=== PATIENT | male | born 1945 | race Caucasian/White ===

== ENCOUNTER 2017-11-18 16:33 | Inpatient (IN) | payer SELFPAY ==
[2017-11-18] MEDS ORDERED: Albuterol/Ipratropium 3.0-0.5 MG/3 ML Neb Soln NEB ONE (16:50)
[2017-11-18] MEDS ORDERED: methylPREDNISolone Sodium Succinate 125 MG/2 ML SDV IVPUSH ONE (16:50)
--- NOTE | 2017-11-18 16:51 | EDM.PDOC ---
ED HPI GENERAL MEDICAL PROBLEM - General Chief Complaint: Respiratory Problem Stated Complaint: COUGH/CONGESTION Time Seen by Provider: 11/18/17 16:51 Source of Information: Reports: Patient - History of Present Illness INITIAL COMMENTS - FREE TEXT/NARRATIVE: HISTORY AND PHYSICAL: History of present illness: [Patient presents from [facility] with fever cough shortness of breath and retractions, he had elevated pressure rolled there is noncompliant with his blood pressure medication. Fever measured up to 10 to a [facility] they did provide 1000 mg of Tylenol, 99.4 on arrival here they had considered sending him by ambulance but he refused and presents by private vehicle as such He is been traveling of recent from the [place] area came by [facility] to [place] with symptoms as above ] Review of systems: As per history of present illness and below otherwise all systems reviewed and negative. Past medical history: As per history of present illness and as reviewed below otherwise noncontributory. Surgical history: As per history of present illness and as reviewed below otherwise noncontributory. Social history: No reported history of drug or alcohol abuse. Family history: As per history of present illness and as reviewed below otherwise noncontributory. Physical exam: HEENT: Atraumatic, normocephalic, pupils reactive, negative for conjunctival pallor or scleral icterus, mucous membranes moist, throat clear, neck supple, nontender, trachea midline. Lungs: Clear to auscultation, breath sounds equal bilaterally, chest nontender. Heart: S1S2, regular, negative for clicks, rubs, or JVD. Abdomen: Soft, nondistended, nontender. Negative for masses or hepatosplenomegaly. Negative for costovertebral tenderness. Pelvis: Stable nontender. Genitourinary: Deferred. Rectal: Deferred. Extremities: Atraumatic, negative for cords or calf pain. Neurovascular unremarkable. Neuro: Awake, alert, oriented. Cranial nerves II through XII unremarkable. Cerebellum unremarkable. Motor and sensory unremarkable throughout. Exam nonfocal. Diagnostics: [Lab as below EKG Chest 1 view ] Therapeutics: [DuoNeb provided a [facility] DuoNeb Solu-Medrol 125 mg IV Normal saline 1 25 mL per hour ] Impression: Hypoxia 84% room air Influenza Hypertension resolved Dehydration Rhabdomyolysis [Fever Cough] Definitive disposition and diagnosis as appropriate pending reevaluation and review of above. - Related Data Allergies Allergy/AdvReac Type Severity Reaction Status Date / Time No Known Allergies Allergy Verified 11/18/17 16:48 Home Meds: Home Meds . [No Known Home Meds] 11/18/17 [History] ED ROS GENERAL - Review of Systems Review Of Systems: ROS reveals no pertinent complaints other than HPI. ED EXAM, GENERAL - Physical Exam Exam: See Below Course - Vital Signs Last Recorded V/S: Last Vital Signs Temp 100.3 F 11/18/17 16:48 Pulse 84 11/18/17 17:24 Resp 22 H 11/18/17 17:24 BP 124/77 11/18/17 17:24 Pulse Ox 90 L 11/18/17 17:24 - Orders/Labs/Meds Orders: Active Orders 24 hr Category Date Time Status EKG Documentation Completion [RC] STAT Care 11/18/17 16:50 Active RT Aerosol Therapy [RC] ASDIRECTED Care 11/18/17 16:50 Active Chest 1V Frontal [CR] Stat Exams 11/18/17 16:50 Taken CULTURE BLOOD [BC] Stat Lab 11/18/17 16:59 Received CULTURE BLOOD [BC] Stat Lab 11/18/17 17:11 Received UA W/MICROSCOPIC [URIN] Stat Lab 11/18/17 16:50 Uncollected Sodium Chloride 0.9% [Normal Saline] 1,000 ml Med 11/18/17 17:00 Active IV STAT Blood Culture x2 Reflex Set [OM.PC] Stat Oth 11/18/17 16:51 Ordered Medication Orders Sodium Chloride (Normal Saline) 1,000 mls @ 125 mls/hr IV STAT JOHN Last Admin: 11/18/17 17:07 Dose: 125 mls/hr Labs: Laboratory Tests 11/18/17 11/18/17 Range/Units 16:45 16:45 WBC 12.31 H (4.0-11.0) K/uL RBC 4.97 (4.50-5.90) M/uL Hgb 16.4 (13.0-17.0) g/dL Hct 46.4 (38.0-50.0) % MCV 93.4 (80.0-98.0) fL MCH 33.0 H (27.0-32.0) pg MCHC 35.3 (31.0-37.0) g/dL RDW Std Deviation 44.5 (28.0-62.0) fl RDW Coeff of [place] 13 (11.0-15.0) % Plt Count 222 (150-400) K/uL MPV 9.90 (7.40-12.00) fL Add Manual Diff YES Neutrophils % (Manual) 54 (48.0-80.0) % Band Neutrophils % 22 % Lymphocytes % (Manual) 9 L (16.0-40.0) % Monocytes % (Manual) 10 (0.0-15.0) % Eosinophils % (Manual) 4 (0.0-7.0) % Basophils % (Manual) 1 (0.0-1.5) % Nucleated RBC % 0.0 /100WBC Absolute Seg Neuts 6.6 H (1.4-5.7) Band Neutrophils # 2.7 Lymphocytes # (Manual) 1.1 (0.6-2.4) Monocytes # (Manual) 1.2 H (0.0-0.8) Eosinophils # (Manual) 0.5 (0.0-0.7) Basophils # (Manual) 0.1 (0.0-0.1) Nucleated RBCs # 0 K/uL Sodium 140 (136-146) mmol/L Potassium 4.2 (3.5-5.1) mmol/L Chloride 109 (98-110) mmol/L Carbon Dioxide 18 L (21-31) mmol/L BUN 22 (6.0-23.0) mg/dL Creatinine 1.1 (0.6-1.5) mg/dL Est Cr Clr Drug Dosing 58.42 mL/min Estimated GFR (MDRD) > 60.0 ml/min Glucose 124 H (60-110) mg/dL Calcium 8.9 (8.8-10.8) mg/dL Total Bilirubin 0.4 (0.1-1.5) mg/dL AST 27 (5-40) IU/L ALT 21 (8-54) IU/L Alkaline Phosphatase 95 (40-150) Creatine Kinase 642 H (9-236) IU/L CK-MB (CK-2) 1.1 (0-6.6) ng/ml Troponin I < 0.10 (0.0-0.29) NG/ML Total Protein 8.1 H (6.0-8.0) g/dL Albumin 4.1 (3.4-4.8) g/dL Globulin 4.0 H (2.0-3.5) g/dL Albumin/Globulin Ratio 1.0 L (1.3-2.8) Meds: Medications Generic Name Dose Route Start Last Admin Trade Name Janice PRN Reason Stop Dose Admin Sodium Chloride 1,000 mls @ 125 mls/hr 11/18/17 17:00 11/18/17 17:07 Normal Saline IV 125 mls/hr STAT JOHN Administration Discontinued Medications Generic Name Dose Route Start Last Admin Trade Name Janice PRN Reason Stop Dose Admin Albuterol/Ipratropium 3 ml 11/18/17 16:50 11/18/17 17:07 Duoneb 3.0-0.5 Mg/3 Ml NEB 11/18/17 16:51 3 ml ONETIME ONE Administration Enalaprilat 1.25 mg 11/18/17 16:57 11/18/17 17:07 Vasotec Iv IVPUSH 11/18/17 16:58 1.25 mg ONETIME ONE Administration Methylprednisolone Sodium Succinate 125 mg 11/18/17 16:50 11/18/17 17:07 Solu-Medrol IVPUSH 11/18/17 16:51 125 mg ONETIME ONE Administration Departure - Departure Time of Disposition: 18:05 Disposition: Admitted As Inpatient 68 Condition: Poor Clinical Impression: Hypoxia, Influenza A, Dehydration, Rhabdomyolysis - Discharge Information Referrals: PCP,None [Primary Care Provider] - Forms: ED Department Discharge - My Orders Last 24 Hours: My Active Orders 11/18/17 16:50 EKG Documentation Completion [RC] STAT RT Aerosol Therapy [RC] ASDIRECTED Chest 1V Frontal [CR] Stat UA W/MICROSCOPIC [URIN] Stat 11/18/17 16:51 Blood Culture x2 Reflex Set [OM.PC] Stat 11/18/17 16:59 CULTURE BLOOD [BC] Stat 11/18/17 17:00 Sodium Chloride 0.9% [Normal Saline] 1,000 ml IV STAT 11/18/17 17:11 CULTURE BLOOD [BC] Stat - Assessment/Plan Last 24 Hours: My Active Orders 11/18/17 16:50 EKG Documentation Completion [RC] STAT RT Aerosol Therapy [RC] ASDIRECTED Chest 1V Frontal [CR] Stat UA W/MICROSCOPIC [URIN] Stat 11/18/17 16:51 Blood Culture x2 Reflex Set [OM.PC] Stat 11/18/17 16:59 CULTURE BLOOD [BC] Stat 11/18/17 17:00 Sodium Chloride 0.9% [Normal Saline] 1,000 ml IV STAT 11/18/17 17:11 CULTURE BLOOD [BC] Stat
[2017-11-18] MEDS ORDERED: Enalaprilat 1.25 MG/ML SDV IVPUSH ONE (16:57)
[2017-11-18] MEDS: Sodium Chloride 0.9% 1,000 ML IV SCH (17:07)
[2017-11-18 17:31] LABS: CHLORIDE,CL 109 mmol/L (98-110); SODIUM,NA 140 mmol/L (136-146)
[2017-11-18] MEDS ORDERED: Acetaminophen 325 MG Tab PO PRN (19:42)
[2017-11-18] MEDS ORDERED: Ondansetron 4 MG/2 ML SDV IVPUSH PRN (19:42)
--- NOTE | 2017-11-18 19:48 | PCM.HP ---
H&P History of Present Illness - History of Present Illness Initial Comments - Free Text/Narative: 72 yo male who presents with several day history of shortness of breath, cough, fevers and myalgias. In the ED he was noted to be Influenza A positive. HE received solumedrol in the ED and enalaprit for a blood pressure of 208/114. He denies any history of COPD but is a one pack a day smoker but had to quit yesterday due to his cough. He denies any history of heart or lung disease. CXR shows no consolidation. - Related Data Allergies/Adverse Reactions: Allergies Allergy/AdvReac Type Severity Reaction Status Date / Time No Known Allergies Allergy Verified 11/18/17 16:48 Home Medications: Home Meds . [No Known Home Meds] 11/18/17 [History] Past Medical History Cardiovascular History: Reports: Hypertension - Past Surgical History GI Surgical History: Reports: Hernia, Abdominal Social & Family History - Family History Family Medical History: Noncontributory - Tobacco Use Smoking Status *Q: Current Every Day Smoker Years of Tobacco use: 59 Packs/Tins Daily: 1 - Alcohol Use Days Per Week of Alcohol Use: 7 Number of Drinks Per Day: 1 Total Drinks Per Week: 7 - Recreational Drug Use Recreational Drug Use: No H&P Review of Systems - Review of Systems: Review Of Systems: ROS reveals no pertinent complaints other than HPI. Exam - Exam Exam: See Below - Vital Signs Vital Signs: Last Vital Signs Temp 37.9 C 11/18/17 16:48 Pulse 84 11/18/17 17:24 Resp 22 H 11/18/17 17:24 BP 124/77 11/18/17 17:24 Pulse Ox 90 L 11/18/17 17:24 Weight: 68.039 kg - Exam General: Alert, Oriented HEENT: Mucosa Moist & [place] Lungs: Clear to Auscultation, Normal Respiratory Effort. No: Rhonchi, Wheezing Cardiovascular: Regular Rate, Regular Rhythm GI/Abdominal Exam: Soft, Non-Tender Extremities: No Pedal Edema Skin: Warm, Dry, Intact - Patient Data Result Diagrams: 11/19/17 05:07 11/19/17 05:07 *Q Meaningful Use (ADM) - VTE *Q VTE Criteria *Q: - Stroke *Q Stroke Criteria *Q: - AMI *Q AMI Criteria *Q: Problem List Initiated/Reviewed/Updated: Yes Orders Last 24hrs: Active Orders 24 hr Category Date Time Status Antiembolic Devices [RC] PER UNIT ROUTINE Care 11/18/17 19:44 Ordered Intake and Output [RC] QSHIFT Care 11/18/17 19:43 Ordered Oxygen Therapy [RC] PRN Care 11/18/17 19:43 Ordered Up ad Marta [RC] ASDIRECTED Care 11/18/17 19:42 Ordered VTE/DVT Education [RC] PER UNIT ROUTINE Care 11/18/17 19:43 Ordered Vital Signs [RC] Q4H Care 11/18/17 19:43 Ordered Regular Diet [DIET] Diet 11/18/17 Breakfast Ordered BASIC METABOLIC PANEL,BMP [CHEM] AM Lab 11/19/17 05:11 Ordered CBC WITH AUTO DIFF [HEME] AM Lab 11/19/17 05:11 Ordered Acetaminophen [Tylenol] Med 11/18/17 19:42 Ordered 650 mg PO Q4H PRN Enoxaparin [Lovenox] Med 11/19/17 09:00 Ordered 40 mg SUBCUT DAILY Levofloxacin/Dextrose 5%-Water [Levaquin in D5W 750 MG/ Med 11/18/17 19:45 Ordered 150 ML] 750 mg Premix Bag 1 bag IV Q24H Ondansetron [Zofran] Med 11/18/17 19:42 Ordered 4 mg IVPUSH Q4H PRN Oseltamivir [Tamiflu] Med 11/18/17 21:00 Ordered 75 mg PO BID Sequential Compression Device [OM.PC] Per Unit Routine Oth 11/18/17 19:43 Ordered Resuscitation Status Routine Resus Stat 11/18/17 19:42 Ordered Medication Orders Sodium Chloride (Normal Saline) 1,000 mls @ 125 mls/hr IV STAT JOHN Last Admin: 11/18/17 17:07 Dose: 125 mls/hr Levofloxacin/Dextrose 750 mg/ (Premix) 150 mls @ 100 mls/hr IV Q24H JOHN Oseltamivir Phosphate (Tamiflu) 75 mg PO BID [facility] Assessment/Plan Comment:: 72 yo male admitted for influenza. Will treat with tamiflu and levaquin for possible bacterial pneumonia.
[2017-11-18] MEDS: Oseltamivir 75 MG Cap PO SCH (21:28)
[2017-11-18] MEDS: Levofloxacin/Dextrose 5%-Water 750 MG in Premix Bag 1 BAG IV SCH (21:28)
[2017-11-18] MEDS ORDERED: Albuterol/Ipratropium 3.0-0.5 MG/3 ML Neb Soln NEB PRN (21:46)
[2017-11-19] MEDS: Sodium Chloride 0.9% 1,000 ML IV SCH ×2 (02:08→11:19)
[2017-11-19 06:04] LABS: CHLORIDE,CL 113 mmol/L (98-110); SODIUM,NA 143 mmol/L (136-146)
[2017-11-19] MEDS: Enoxaparin 40 MG/0.4 ML Syringe SUBCUT SCH (08:36)
[2017-11-19] MEDS: Oseltamivir 75 MG Cap PO SCH ×2 (08:37→20:44)
[2017-11-19] MEDS ORDERED: Lisinopril 10 MG Tab PO SCH (09:00)
[2017-11-19] MEDS ORDERED: Hydrochlorothiazide 25 MG Tab PO SCH (12:30)
[2017-11-19] MEDS: cloNIDine 0.1 MG Tab PO SCH ×2 (12:55→20:44)
--- NOTE | 2017-11-19 13:01 | PCM.PN ---
- Review of Systems Systems Review Comment:: reports feeling better, breathing has improved. - Patient Data Vitals - Most Recent: Last Vital Signs Temp 36.2 C 11/19/17 12:00 Pulse 66 11/19/17 12:00 Resp 20 11/19/17 12:00 BP 223/110 H 11/19/17 12:55 Pulse Ox 94 L 11/19/17 12:00 Weight - Most Recent: 68.039 kg I&O - Last 24 Hours: Intake & Output 11/18/17 11/19/17 11/19/17 22:59 06:59 14:59 Intake Total 1700 125 Output Total 550 Balance 1150 125 Lab Results Last 24 Hours: Laboratory Results - last 24 hr 11/19/17 11/19/17 11/19/17 Range/Units 03:30 05:07 05:07 WBC 11.83 H (4.0-11.0) K/uL RBC 4.39 L (4.50-5.90) M/uL Hgb 14.2 (13.0-17.0) g/dL Hct 41.0 (38.0-50.0) % MCV 93.4 (80.0-98.0) fL MCH 32.3 H (27.0-32.0) pg MCHC 34.6 (31.0-37.0) g/dL RDW Std Deviation 44.6 (28.0-62.0) fl RDW Coeff of [place] 13 (11.0-15.0) % Plt Count 230 (150-400) K/uL MPV 10.30 (7.40-12.00) fL Neut % (Auto) 88.1 H (48.0-80.0) % Lymph % (Auto) 6.2 L (16.0-40.0) % [place] % (Auto) 5.5 (0.0-15.0) % Eos % (Auto) 0.0 (0.0-7.0) % Baso % (Auto) 0.2 (0.0-1.5) % Neut # (Auto) 10.4 H (1.4-5.7) K/uL Lymph # (Auto) 0.7 (0.6-2.4) K/uL [place] # (Auto) 0.7 (0.0-0.8) K/uL Eos # (Auto) 0.0 (0.0-0.7) K/uL Baso # (Auto) 0.0 (0.0-0.1) K/uL Nucleated RBC % 0.0 /100WBC Nucleated RBCs # 0 K/uL Sodium 143 (136-146) mmol/L Potassium 4.3 (3.5-5.1) mmol/L Chloride 113 H (98-110) mmol/L Carbon Dioxide 19 L (21-31) mmol/L BUN 28 H (6.0-23.0) mg/dL Creatinine 1.0 (0.6-1.5) mg/dL Est Cr Clr Drug Dosing 66.15 mL/min Estimated GFR (MDRD) > 60.0 ml/min Glucose 134 H (60-110) mg/dL Calcium 8.1 L (8.8-10.8) mg/dL Urine Color YELLOW Urine Appearance CLEAR Urine pH 5.5 (5.0-8.0) Ur Specific [place] >= 1.030 (1.001-1.035) Urine Protein NEGATIVE (NEGATIVE) mg/dL Urine Glucose (UA) NEGATIVE (NEGATIVE) mg/dL Urine Ketones TRACE H (NEGATIVE) mg/dL Urine Occult Blood NEGATIVE (NEGATIVE) Urine Nitrite NEGATIVE (NEGATIVE) Urine Bilirubin NEGATIVE (NEGATIVE) Urine Urobilinogen 0.2 (<2.0) EU/dL Ur Leukocyte Esterase NEGATIVE (NEGATIVE) Urine RBC 0-1 (0-2/HPF) Urine WBC 0-1 (0-5/HPF) Ur Epithelial Cells RARE (NONE-FEW) Urine Bacteria RARE (NEGATIVE) Med Orders - Current: Current Medications Acetaminophen (Tylenol) 650 mg PO Q4H PRN PRN Reason: Pain (Mild 1-3)/fever Albuterol/Ipratropium (Duoneb 3.0-0.5 Mg/3 Ml) 3 ml NEB Q4HRRT PRN PRN Reason: sob/wheezing Clonidine HCl (Catapres) 0.1 mg PO Q12HR JOHN Last Admin: 11/19/17 12:55 Dose: 0.1 mg Enoxaparin Sodium (Lovenox) 40 mg SUBCUT DAILY [facility] Last Admin: 11/19/17 08:36 Dose: 40 mg Levofloxacin/Dextrose 750 mg/ (Premix) 150 mls @ 100 mls/hr IV Q24H [facility] Last Admin: 11/18/17 21:28 Dose: 100 mls/hr Ondansetron HCl (Zofran) 4 mg IVPUSH Q4H PRN PRN Reason: Nausea Oseltamivir Phosphate (Tamiflu) 75 mg PO BID [facility] Last Admin: 11/19/17 08:37 Dose: 75 mg Discontinued Medications Albuterol/Ipratropium (Duoneb 3.0-0.5 Mg/3 Ml) 3 ml NEB ONETIME ONE Stop: 11/18/17 16:51 Last Admin: 11/18/17 17:07 Dose: 3 ml Enalaprilat (Vasotec Iv) 1.25 mg IVPUSH ONETIME ONE Stop: 11/18/17 16:58 Last Admin: 11/18/17 17:07 Dose: 1.25 mg Hydrochlorothiazide (Hydrochlorothiazide) 25 mg PO DAILY [facility] Sodium Chloride (Normal Saline) 1,000 mls @ 125 mls/hr IV STAT [facility] Last Admin: 11/19/17 11:19 Dose: 125 mls/hr Lisinopril (Prinivil) 20 mg PO DAILY [facility] Methylprednisolone Sodium Succinate (Solu-Medrol) 125 mg IVPUSH ONETIME ONE Stop: 11/18/17 16:51 Last Admin: 11/18/17 17:07 Dose: 125 mg - Exam General: Alert, Oriented HEENT: Mucous Membr. Moist/[place] Lungs: Normal Respiratory Effort, Decreased Breath Sounds Cardiovascular: Regular Rate, Regular Rhythm GI/Abdominal Exam: Soft, Non-Tender Extremities: No Pedal Edema Skin: Warm, Dry, Intact Neurological: No New Focal Deficit - Problem List Review Problem List Initiated/Reviewed/Updated: Yes - My Orders Last 24 Hours: My Active Orders 11/18/17 19:42 Up ad Marta [RC] ASDIRECTED Acetaminophen [Tylenol] 650 mg PO Q4H PRN Ondansetron [Zofran] 4 mg IVPUSH Q4H PRN Resuscitation Status Routine 11/18/17 19:43 Intake and Output [RC] Q12H Oxygen Therapy [RC] PRN VTE/DVT Education [RC] PER UNIT ROUTINE Vital Signs [RC] Q4H Sequential Compression Device [OM.PC] Per Unit Routine 11/18/17 19:44 Antiembolic Devices [RC] PER UNIT ROUTINE 11/18/17 20:00 Levofloxacin/Dextrose 5%-Water [Levaquin in D5W 750 MG/150 ML] 750 mg Premix Bag 1 bag IV Q24H 11/18/17 21:00 Oseltamivir [Tamiflu] 75 mg PO BID 11/18/17 21:46 RT Aerosol Therapy [RC] ASDIRECTED Albuterol/Ipratropium [DuoNeb 3.0-0.5 MG/3 ML] 3 ml NEB Q4HRRT PRN 11/19/17 03:12 Discontinue Telemetry Monitoring [Cardiac Monitoring Discontinue] [RC] Click to Edit 11/19/17 09:00 Enoxaparin [Lovenox] 40 mg SUBCUT DAILY 11/19/17 12:24 cloNIDine [Catapres] 0.1 mg PO Q12HR - Plan Plan:: 72 yo male admitted for influenza. Pneumonia: will continue tamiflu and levaquin HTN: will start clonidine for elevated blood pressures. patient was on lisinopril in past but reports medication did not work so does not want to restart lisinopril.
[2017-11-19] MEDS: Levofloxacin/Dextrose 5%-Water 750 MG in Premix Bag 1 BAG IV SCH (20:47)
[2017-11-19] MEDS ORDERED: Hydrochlorothiazide 25 MG Tab PO ONE (23:53)
[2017-11-20 06:48] LABS: CHLORIDE,CL 110 mmol/L (98-110); SODIUM,NA 141 mmol/L (136-146)
[2017-11-20] MEDS: Enoxaparin 40 MG/0.4 ML Syringe SUBCUT SCH (08:52)
[2017-11-20] MEDS: Oseltamivir 75 MG Cap PO SCH (08:52)
[2017-11-20] MEDS: cloNIDine 0.1 MG Tab PO SCH (08:52)
--- NOTE | 2017-11-20 08:57 | PCM.DCSUM1 ---
Discharge Summary - Discharge Data Discharge Date: 11/20/17 Discharge Disposition: Home, Self-Care 01 Condition: Good - Patient Summary/Data Hospital Course: 72 yo male who presented with several day history of shortness of breath, cough , fevers and myalgias. In the ED he was noted to be Influenza A positive. He received solumedrol in the ED and enalaprit for a blood pressure of 208/114. CXR showed no consolidation. He was admitted for influenza and possible community acquired pneumonia. He was treated with tamiflu and levaquin with improvement in his symptoms. He was started on clonidine 0.1 mg BID for elevated blood pressures. Patient is being discharged today on tamiflu and levaquin and will follow up with his PCP in [facility]. - Patient Instructions Diet: Regular Diet as Tolerated Activity: As Tolerated - Discharge Plan Prescriptions/Med Rec: cloNIDine [Catapres] 0.1 mg PO Q12HR #14 tablet Levofloxacin [Levaquin] 750 mg PO DAILY #4 tablet Oseltamivir Phosphate [IJD: Tamiflu] 75 mg PO BID #4 capsule Home Medications: Home Meds Levofloxacin [Levaquin] 750 mg PO DAILY #4 tablet 11/20/17 [Rx] Oseltamivir Phosphate [IJD: Tamiflu] 75 mg PO BID #4 capsule 11/20/17 [Rx] cloNIDine [Catapres] 0.1 mg PO Q12HR #14 tablet 11/20/17 [Rx] Forms: ED Department Discharge Referrals: PCP,None [Primary Care Provider] - - Patient Data Vitals - Most Recent: Last Vital Signs Temp 36.4 C 11/20/17 04:00 Pulse 61 11/20/17 04:00 Resp 18 11/20/17 04:00 BP 179/81 H 11/20/17 08:52 Pulse Ox 94 L 11/20/17 04:00 Weight - Most Recent: 68.039 kg I&O - Last 24 hours: Intake & Output 11/19/17 11/20/17 11/20/17 22:59 06:59 14:59 Intake Total 1040 718 Output Total 1040 1345 Balance 0 -627 Lab Results - Last 24 hrs: Laboratory Results - last 24 hr 11/20/17 11/20/17 Range/Units 06:05 06:05 WBC 13.16 H (4.0-11.0) K/uL RBC 4.43 L (4.50-5.90) M/uL Hgb 14.3 (13.0-17.0) g/dL Hct 41.6 (38.0-50.0) % MCV 93.9 (80.0-98.0) fL MCH 32.3 H (27.0-32.0) pg MCHC 34.4 (31.0-37.0) g/dL RDW Std Deviation 45.9 (28.0-62.0) fl RDW Coeff of [place] 13 (11.0-15.0) % Plt Count 234 (150-400) K/uL MPV 9.90 (7.40-12.00) fL Neut % (Auto) 71.3 (48.0-80.0) % Lymph % (Auto) 16.8 (16.0-40.0) % [place] % (Auto) 10.7 (0.0-15.0) % Eos % (Auto) 1.0 (0.0-7.0) % Baso % (Auto) 0.2 (0.0-1.5) % Neut # (Auto) 9.4 H (1.4-5.7) K/uL Lymph # (Auto) 2.2 (0.6-2.4) K/uL [place] # (Auto) 1.4 H (0.0-0.8) K/uL Eos # (Auto) 0.1 (0.0-0.7) K/uL Baso # (Auto) 0.0 (0.0-0.1) K/uL Nucleated RBC % 0.0 /100WBC Nucleated RBCs # 0 K/uL Sodium 141 (136-146) mmol/L Potassium 3.9 (3.5-5.1) mmol/L Chloride 110 (98-110) mmol/L Carbon Dioxide 22 (21-31) mmol/L BUN 26 H (6.0-23.0) mg/dL Creatinine 0.8 (0.6-1.5) mg/dL Est Cr Clr Drug Dosing 82.69 mL/min Estimated GFR (MDRD) > 60.0 ml/min Glucose 88 (60-110) mg/dL Calcium 8.7 L (8.8-10.8) mg/dL Med Orders - Current: Current Medications Acetaminophen (Tylenol) 650 mg PO Q4H PRN PRN Reason: Pain (Mild 1-3)/fever Albuterol/Ipratropium (Duoneb 3.0-0.5 Mg/3 Ml) 3 ml NEB Q4HRRT PRN PRN Reason: sob/wheezing Clonidine HCl (Catapres) 0.1 mg PO Q12HR [facility] Last Admin: 11/20/17 08:52 Dose: 0.1 mg Enoxaparin Sodium (Lovenox) 40 mg SUBCUT DAILY [facility] Last Admin: 11/20/17 08:52 Dose: 40 mg Levofloxacin/Dextrose 750 mg/ (Premix) 150 mls @ 100 mls/hr IV Q24H [facility] Last Admin: 11/19/17 20:47 Dose: 100 mls/hr Ondansetron HCl (Zofran) 4 mg IVPUSH Q4H PRN PRN Reason: Nausea Oseltamivir Phosphate (Tamiflu) 75 mg PO BID [facility] Last Admin: 11/20/17 08:52 Dose: 75 mg Discontinued Medications Albuterol/Ipratropium (Duoneb 3.0-0.5 Mg/3 Ml) 3 ml NEB ONETIME ONE Stop: 11/18/17 16:51 Last Admin: 11/18/17 17:07 Dose: 3 ml Enalaprilat (Vasotec Iv) 1.25 mg IVPUSH ONETIME ONE Stop: 11/18/17 16:58 Last Admin: 11/18/17 17:07 Dose: 1.25 mg Hydrochlorothiazide (Hydrochlorothiazide) 25 mg PO DAILY [facility] Hydrochlorothiazide (Hydrochlorothiazide) 25 mg PO ONETIME ONE Stop: 11/19/17 23:54 Last Admin: 11/20/17 00:34 Dose: 25 mg Sodium Chloride (Normal Saline) 1,000 mls @ 125 mls/hr IV STAT [facility] Last Admin: 11/19/17 11:19 Dose: 125 mls/hr Lisinopril (Prinivil) 20 mg PO DAILY [facility] Last Admin: 11/19/17 14:41 Dose: Not Given Methylprednisolone Sodium Succinate (Solu-Medrol) 125 mg IVPUSH ONETIME ONE Stop: 11/18/17 16:51 Last Admin: 11/18/17 17:07 Dose: 125 mg *Q Meaningful Use (DIS) - VTE *Q VTE Criteria *Q: - Stroke *Q Stroke Criteria *Q: - AMI *Q AMI Criteria *Q:
--- NOTE | 2017-11-22 16:59 | CR ---
EXAM DATE: 11/18/17 PATIENT'S AGE: 72 Patient: SATHYA KIM Facility: [place], [place] Site . Site : 1945 Study: XRay Chest [id number] 6:00:25 PM Ordering Physician: Graciela Mar Final Report: INDICATION: SOB and cough x3 days TECHNIQUE: Chest 1 view. COMPARISON: None. FINDINGS: Cardiovascular and mediastinum: Heart size and vasculature are normal in caliber and appearance. Mediastinum is within normal limits. Lungs and pleural space: Lungs are clear. No sign of infiltrate or mass. No sign of pleural effusion. No pneumothorax. Bones and soft tissues: No significant findings. IMPRESSION: Unremarkable chest. Dictated by: Gregorio Lynch MD @ 11/18/2017 18:25:56 (Electronic Signature) Report Signed by Proxy. [facility] H[facility]PITALMarie
== END 2017-11-20 12:15 | disposition home or self-care (01) | DRG 195 ==
LOC: MW.ED 16:33 → MW.MS 18:06
PROVIDERS: ADMIT Internal Medicine; ATTEND Internal Medicine
DX: J09.X2 Influenza due to identified novel influenza A virus with other respiratory manifestations (principal); J15.9 Unspecified bacterial pneumonia
CPT/HCPCS: 36415; 71010; 71010-26; 80048; 80053; 81001; 82550; 82553; 84484; 85025; 87040; 87804; 94640; 96361; 96374; 96375; 99284; 99285-25; A9270-GY; J1650; J1956; J2930; J7040